=== PATIENT | female | born 1980 | race African-American/Black ===

== ENCOUNTER 2023-05-05 00:44 | Emergency (ER) | payer MEDICAID ==
[~2023-05-05] VITALS: Ht 170.2 cm; Wt 95.0 kg
[2023-05-05 00:45] VITALS: O2SAT 100
[2023-05-05 01:09] LABS: BASOPHILS % 1.1 % (0.0-2.0); DIFFERENTIAL COMMENT 0; EOSINOPHILS % 3.4 % (0.0-5.0); HEMATOCRIT. 35.6 % (36.0-48.0); HEMOGLOBIN. 11.6 g/dL (12.0-16.0); MEAN CORPUSCULAR HEMOGLOBIN 25.3 pg (28.0-32.0); MEAN CORPUSCULAR HGB CONC 32.7 g/dL (31.0-37.0); MEAN CORPUSCULAR VOLUME 77.3 fL (81.0-99.0); MEAN PLATELET VOLUME 8.6 fl (7.4-10.4); MONOCYTES % 9.4 % (2.0-8.0); NEUTROPHILS % 43.1 % (40.0-76.0); PLATELET 272 x1000/uL (130-400); RED BLOOD CELL COUNT 4.61 mill/uL (4.2-5.4); RED CELL DISTRIBUTION WIDTH 19.1 % (11.6-14.6); WHITE BLOOD COUNT 6.1 x1000/uL (4.5-11.0)
[2023-05-05 01:20] LABS: ALANINE AMINOTRANSFERASE 9 IU/L (10-49); ALBUMIN 4.2 g/dL (3.2-4.8); ASPARTATE AMINOTRANSFERASE 11 IU/L (<34); BILIRUBIN TOTAL 0.2 mg/dL (0.1-1.0); CALCIUM 9.3 mg/dL (8.7-10.4); CARBON DIOXIDE 25 mEq/L (21-32); CHLORIDE 106 mEq/L (98-107); CREATININE 0.8 mg/dL (0.6-1.0); GLUCOSE 129 mg/dL (70-105); HCG SCREEN NEGATIVE; POTASSIUM 3.3 mEq/L (3.5-5.1); PROTEIN TOTAL 7.3 g/dL (6.0-8.3); SODIUM 139 mEq/L (136-145); TROPONIN I HIGH SENSITIVITY 5 ng/L (3.0-34); UREA NITROGEN BLOOD 14 mg/dL (9-23)
[2023-05-05 02:59] LABS: *AMPHETAMINES SCREEN URINE NEGATIVE (NEGATIVE); *BARBITURATES SCREEN URINE NEGATIVE (NEGATIVE); *BENZODIAZEPINES SCREEN URINE NEGATIVE (NEGATIVE); *COCAINE SCREEN URINE NEGATIVE (NEGATIVE); CANNABINOID URINE SCREEN NEGATIVE (NEGATIVE); ECSTASY MDMA SCREEN URINE NEGATIVE (NEGATIVE); METHADONE URINE SCREEN Neg (NEGATIVE); OPIATES URINE SCREEN NEGATIVE (NEGATIVE); PHENCYCLIDINE URINE SCREEN NEGATIVE (NEGATIVE)
[2023-05-05] MEDS: AMLODIPINE 5MG TABLET PO NR (04:12)
[2023-05-05] MEDS: ACETAMINOPHEN 325MG TABLET PO NR (04:13)
[2023-05-05] MEDS: METOCLOPRAMIDE HCL 10MG/2ML VIAL IV NR (04:14)
[2023-05-05] MEDS ORDERED: AMLO10TA80 MT (05:36)
[2023-05-05] MEDS ORDERED: METO-293 MT (05:36)
[2023-05-05 07:50] VITALS: BP 139/88; PULSE 87; RESP 16; TEMP 98
== END 2023-05-05 08:30 | disposition home or self-care (01) ==
LOC: ER 00:44
DX: I10 Essential (primary) hypertension (principal); G43.909 Migraine, unspecified, not intractable, without status migrainosus; Z00.00 Encounter for general adult medical examination without abnormal findings; Z91.148 Patient's other noncompliance with medication regimen for other reason
CPT/HCPCS: 99285; 96374; 70450; 71045; 80053; 80305; 84703; 83880; 85025; 84484; 36415; 93005; J2765

== ENCOUNTER 2023-05-18 00:25 | Inpatient (IN) | payer MEDICAID ==
[~2023-05-18] VITALS: Ht 167.6 cm; Wt 97.5 kg
[~2023-05-18 00:25] MED LIST: AMLO10TA80 MT; METO-293 MT
[2023-05-18 01:09] LABS: CLARITY URINE CLEAR (CLEAR); COLOR URINE YELLOW (YELLOW); GLUCOSE URINE NEGATIVE (NEGATIVE); KETONES URINE NEGATIVE (NEGATIVE); LEUKOCYTE ESTERASE URINE TRACE (NEGATIVE); NITRITE URINE NEGATIVE (NEGATIVE); OCCULT BLOOD URINE 1+ (NEGATIVE); PH URINE 7.5 (4.5-8.0); PROTEIN URINE NEGATIVE (NEGATIVE); SPECIFIC GRAVITY URINE 1.012 (1.005-1.030)
[2023-05-18 01:12] LABS: BASOPHILS % 0.7 % (0.0-2.0); DIFFERENTIAL COMMENT 0; EOSINOPHILS % 2.5 % (0.0-5.0); HEMATOCRIT. 35.7 % (36.0-48.0); HEMOGLOBIN. 11.5 g/dL (12.0-16.0); MEAN CORPUSCULAR HEMOGLOBIN 24.8 pg (28.0-32.0); MEAN CORPUSCULAR HGB CONC 32.2 g/dL (31.0-37.0); MEAN CORPUSCULAR VOLUME 77.1 fL (81.0-99.0); MEAN PLATELET VOLUME 8.6 fl (7.4-10.4); MONOCYTES % 6.6 % (2.0-8.0); NEUTROPHILS % 50.2 % (40.0-76.0); PLATELET 310 x1000/uL (130-400); RED BLOOD CELL COUNT 4.63 mill/uL (4.2-5.4); RED CELL DISTRIBUTION WIDTH 17.4 % (11.6-14.6); WHITE BLOOD COUNT 7.2 x1000/uL (4.5-11.0)
[2023-05-18 01:24] LABS: ALANINE AMINOTRANSFERASE 15 IU/L (10-49); ALBUMIN 4.5 g/dL (3.2-4.8); ASPARTATE AMINOTRANSFERASE 15 IU/L (<34); BILIRUBIN TOTAL 0.3 mg/dL (0.1-1.0); CARBON DIOXIDE 25 mEq/L (21-32); CHLORIDE 107 mEq/L (98-107); CREATININE 0.7 mg/dL (0.6-1.0); GLUCOSE 117 mg/dL (70-105); POTASSIUM 3.2 mEq/L (3.5-5.1); PROTEIN TOTAL 8.3 g/dL (6.0-8.3); SODIUM 138 mEq/L (136-145); TROPONIN I HIGH SENSITIVITY 9 ng/L (3.0-34); UREA NITROGEN BLOOD 11 mg/dL (9-23)
[2023-05-18 01:34] LABS: BACTERIA URINE TRACE; RBC URINE 0-2 /hpf (0-2); SQUAMOUS EPITHELIAL CELL URINE FEW /lpf (RARE/1+)
[2023-05-18 06:09] LABS: HCG SCREEN NEGATIVE
[2023-05-18] MEDS ORDERED: IOHEXOL-350 100 ML BOTTLE ONE (07:16)
[2023-05-18 07:50] VITALS: BP 132/92; PULSE 94; RESP 18; TEMP 98.1
[2023-05-18 08:00] VITALS: BP 134/92; PULSE 91; RESP 18; TEMP 94.6
[2023-05-18] MEDS ORDERED: HYDR10TA34 PO (11:16)
[2023-05-18 12:00] VITALS: BP 126/84; PULSE 84; RESP 18; TEMP 96
[2023-05-18] MEDS ORDERED: NALOXONE HCL 0.4MG/ML VIAL IV PRN (12:00)
[2023-05-18] MEDS: HYDROCODONE/ACETAMINOPHEN 5/325MG TABLET PO PRN (12:44)
[2023-05-18] MEDS ORDERED: ONDANSETRON HCL 4MG/2ML INJ IV PRN (14:15)
[2023-05-18] MEDS ORDERED: ACETAMINOPHEN 325MG TABLET PO PRN (14:15)
[2023-05-18] MEDS ORDERED: CLONIDINE 0.1MG TABLET PO PRN (14:15)
[2023-05-18] MEDS ORDERED: MAGNESIUM/ALUMINUM HYDROXIDE/SIMETHICONE 30ML UDC PO PRN (14:15)
[2023-05-18 16:00] VITALS: BP 128/70; PULSE 97; RESP 18; TEMP 97.3
[2023-05-18] MEDS: CEFTRIAXONE 1GM/50ML 50 ML IV SCH (16:01)
[2023-05-18] MEDS: ENOXAPARIN 30MG/0.3ML SYR SUBCUT SCH (16:02)
[2023-05-18 17:50] LABS: *AMPHETAMINES SCREEN URINE NEGATIVE (NEGATIVE); *BARBITURATES SCREEN URINE NEGATIVE (NEGATIVE); *BENZODIAZEPINES SCREEN URINE NEGATIVE (NEGATIVE); *COCAINE SCREEN URINE NEGATIVE (NEGATIVE); CANNABINOID URINE SCREEN NEGATIVE (NEGATIVE); ECSTASY MDMA SCREEN URINE NEGATIVE (NEGATIVE); METHADONE URINE SCREEN Neg (NEGATIVE); OPIATES URINE SCREEN PRESUMPTIVE POSITIVE (NEGATIVE); PHENCYCLIDINE URINE SCREEN NEGATIVE (NEGATIVE)
[2023-05-18 20:00] VITALS: BP 115/64; PULSE 95; RESP 20; TEMP 97.9
[2023-05-19] VITALS: BP 112/63; PULSE 94; RESP 20; TEMP 97.7
[2023-05-19 04:00] VITALS: BP 129/66; PULSE 96; RESP 20; TEMP 97.8
[2023-05-19 06:30] LABS: BASOPHILS % 0.8 % (0.0-2.0); DIFFERENTIAL COMMENT 0; EOSINOPHILS % 4.5 % (0.0-5.0); HEMATOCRIT. 36.7 % (36.0-48.0); HEMOGLOBIN. 12.1 g/dL (12.0-16.0); LYMPHOCYTES % 49.8 % (20.0-50.0); MEAN CORPUSCULAR HEMOGLOBIN 25.4 pg (28.0-32.0); MEAN CORPUSCULAR VOLUME 76.9 fL (81.0-99.0); NEUTROPHILS % 35.9 % (40.0-76.0); PLATELET 263 x1000/uL (130-400); RED BLOOD CELL COUNT 4.78 mill/uL (4.2-5.4); WHITE BLOOD COUNT 5.2 x1000/uL (4.5-11.0)
[2023-05-19 07:06] LABS: ALANINE AMINOTRANSFERASE 15 IU/L (10-49); ASPARTATE AMINOTRANSFERASE 20 IU/L (<34); BILIRUBIN DIRECT 0.1 mg/dL (<=3.0); BILIRUBIN TOTAL 0.5 mg/dL (0.1-1.0); CALCIUM 8.6 mg/dL (8.7-10.4); CARBON DIOXIDE 25 mEq/L (21-32); CHLORIDE 104 mEq/L (98-107); CHOLESTEROL 194 mg/dL (<200); CREATININE 0.6 mg/dL (0.6-1.0); GLUCOSE 104 mg/dL (70-105); HDL CHOLESTEROL 72 mg/dL (>65); LDL CHOLESTEROL 121 mg/dL (5-100); PHOSPHORUS 3.2 mg/dL (2.5-4.9); POTASSIUM 3.6 mEq/L (3.5-5.1); SODIUM 138 mEq/L (136-145); THYROID STIMULATING HORMONE 7.86 uIU/mL (0.55-4.78); TRIGLYCERIDE 76 mg/dL (0-150); TROPONIN I HIGH SENSITIVITY 8 ng/L (3.0-34); UREA NITROGEN BLOOD 12 mg/dL (9-23)
[2023-05-19 08:00] VITALS: BP 118/84; PULSE 108; RESP 18; TEMP 97.9
[2023-05-19] MEDS: PANTOPRAZOLE SODIUM 40 MG/VIAL IV SCH (10:08)
[2023-05-19] MEDS ORDERED: IOHEXOL-350 100 ML BOTTLE ONE (10:23)
[2023-05-19 12:00] VITALS: BP 120/77; PULSE 90; RESP 18; TEMP 97.8
[2023-05-19 12:43] LABS: T4 FREE 0.98 ng/dL (0.89-1.76)
[2023-05-19] MEDS: LEVOTHYROXINE SODIUM 25MCG TABLET PO SCH (12:56)
[2023-05-19 16:00] VITALS: BP 122/80; PULSE 93; RESP 18; TEMP 98.6
[2023-05-19 20:43] VITALS: BP 120/82; PULSE 95; RESP 16; TEMP 97.8
[2023-05-19] MEDS: ATORVASTATIN CALCIUM 40MG TABLET PO SCH (20:56)
[2023-05-19] MEDS: METOPROLOL TARTRATE 25MG TABLET PO SCH (20:56)
[2023-05-20] VITALS: BP 119/70; PULSE 84; RESP 20; TEMP 97.3
[2023-05-20 07:32] LABS: BASOPHILS % 0.6 % (0.0-2.0); DIFFERENTIAL COMMENT 0; HEMATOCRIT. 35.6 % (36.0-48.0); HEMOGLOBIN. 11.9 g/dL (12.0-16.0); MEAN CORPUSCULAR HEMOGLOBIN 25.6 pg (28.0-32.0); MEAN CORPUSCULAR HGB CONC 33.5 g/dL (31.0-37.0); MEAN CORPUSCULAR VOLUME 76.3 fL (81.0-99.0); MEAN PLATELET VOLUME 9.1 fl (7.4-10.4); MONOCYTES % 8.6 % (2.0-8.0); NEUTROPHILS % 48.8 % (40.0-76.0); PLATELET 272 x1000/uL (130-400); RED BLOOD CELL COUNT 4.67 mill/uL (4.2-5.4); RED CELL DISTRIBUTION WIDTH 16.8 % (11.6-14.6); WHITE BLOOD COUNT 4.9 x1000/uL (4.5-11.0)
[2023-05-20 07:37] LABS: CALCIUM 9.2 mg/dL (8.7-10.4); CARBON DIOXIDE 25 mEq/L (21-32); CHLORIDE 105 mEq/L (98-107); CREATININE 0.8 mg/dL (0.6-1.0); GLUCOSE 114 mg/dL (70-105); POTASSIUM 3.9 mEq/L (3.5-5.1); SODIUM 138 mEq/L (136-145); UREA NITROGEN BLOOD 18 mg/dL (9-23)
[2023-05-20 08:00] VITALS: BP 100/66; PULSE 84; RESP 18; TEMP 97.5
[2023-05-20 12:01] VITALS: BP 116/64; PULSE 98; RESP 18; TEMP 98
[2023-05-20] MEDS ORDERED: LIP40 MT (12:37)
[2023-05-20] MEDS ORDERED: LEVO25TA2 MT (12:37)
[2023-05-20] MEDS ORDERED: LEVO-65 MT (12:37)
[2023-05-20 14:06] VITALS: BP 117/61; PULSE 98; TEMP 97.9; O2SAT 96
[2023-05-20 16:00] VITALS: BP 106/76; PULSE 92; RESP 20; TEMP 98.6
== END 2023-05-20 16:50 | disposition home or self-care (01) | DRG 199 ==
LOC: ER 00:25 → 7WST 02:01
PROVIDERS: ADMIT Internal Medicine; ATTEND Internal Medicine
DX: I10 Essential (primary) hypertension (principal); E03.9 Hypothyroidism, unspecified; R00.0 Tachycardia, unspecified; E66.9 Obesity, unspecified; Z68.34 Body mass index [BMI] 34.0-34.9, adult; E78.5 Hyperlipidemia, unspecified
CPT/HCPCS: 36415; 71045; 71275; 80048; 80053; 80061; 80076; 80305; 81003; 83735; 84100; 84439; 84443; 84481; 84484; 84703; 85025; 85379; 93005; 93306; 93970; 99285; C9113; J0696; J1650; Q9967

== ENCOUNTER 2023-07-08 10:34 | Emergency (ER) | payer MEDICAID ==
[~2023-07-08] VITALS: Ht 167.6 cm; Wt 97.5 kg
[~2023-07-08 10:34] MED LIST changes: +HYDR10TA34 PO; +LEVO-65 MT; +LEVO25TA2 MT; +LIP40 MT
[2023-07-08 10:39] VITALS: O2SAT 98
[2023-07-08] MEDS: KETOROLAC 30MG/ML VIAL IV STA (10:47)
[2023-07-08] MEDS: DEXAMETHASONE 4MG/ML 1ML VIAL IV ONE (11:00)
[2023-07-08] MEDS: AMOXICILLIN/POTASSIUM CLAVULANATE 875/125MG TAB PO ONE (11:00)
[2023-07-08] MEDS: ACETAMINOPHEN 325MG TABLET PO ONE (11:00)
[2023-07-08] MEDS: SODIUM CHLORIDE 0.9% 500 ML IV ONE (11:00)
[2023-07-08 13:00] VITALS: BP 127/74; PULSE 89; RESP 17; TEMP 98.4
[2023-07-08] MEDS ORDERED: IBUP-2029 MT (13:20)
[2023-07-08] MEDS ORDERED: AMOX1TAB16 MT (13:20)
== END 2023-07-08 15:57 | disposition home or self-care (01) ==
LOC: ER 10:34
DX: J02.9 Acute pharyngitis, unspecified (principal); I10 Essential (primary) hypertension; Z79.899 Other long term (current) drug therapy
CPT/HCPCS: 87430; 96361; 96374; 96375; 99284; J1100; J1885; J7030; Z7610

== ENCOUNTER 2023-09-20 04:39 | Inpatient (IN) | payer MEDICAID ==
[~2023-09-20] VITALS: Ht 170.2 cm; Wt 94.8 kg
[~2023-09-20 04:39] MED LIST changes: +AMOX1TAB16 MT; +IBUP-2029 MT
[2023-09-20 06:00] LABS: BASOPHILS % 0.7 % (0.0-2.0); DIFFERENTIAL COMMENT 0; EOSINOPHILS % 3.1 % (0.0-5.0); HEMATOCRIT. 34.4 % (36.0-48.0); HEMOGLOBIN. 10.9 g/dL (12.0-16.0); LYMPHOCYTES % 41.9 % (20.0-50.0); MEAN CORPUSCULAR HEMOGLOBIN 22.7 pg (28.0-32.0); MEAN CORPUSCULAR HGB CONC 31.7 g/dL (31.0-37.0); MEAN CORPUSCULAR VOLUME 71.4 fL (81.0-99.0); MEAN PLATELET VOLUME 8.3 fl (7.4-10.4); MONOCYTES % 8.5 % (2.0-8.0); NEUTROPHILS % 45.8 % (40.0-76.0); PLATELET 286 x1000/uL (130-400); RED BLOOD CELL COUNT 4.82 mill/uL (4.2-5.4); RED CELL DISTRIBUTION WIDTH 16.9 % (11.6-14.6); WHITE BLOOD COUNT 4.4 x1000/uL (4.5-11.0)
[2023-09-20 06:13] LABS: CHLORIDE 108 mEq/L (98-107); POTASSIUM 3.9 mEq/L (3.5-5.1); SODIUM 140 mEq/L (136-145)
[2023-09-20 06:14] LABS: CALCIUM 9.1 mg/dL (8.7-10.4); CARBON DIOXIDE 26 mEq/L (21-32)
[2023-09-20 06:19] LABS: CREATININE 0.7 mg/dL (0.6-1.0); GLUCOSE 116 mg/dL (70-105); UREA NITROGEN BLOOD 8 mg/dL (9-23)
[2023-09-20 06:20] LABS: TROPONIN I HIGH SENSITIVITY 7 ng/L (3.0-34)
[2023-09-20] MEDS: HYDRALAZINE 20MG/ML VIAL IV ONE ×2 (06:30→09:00)
[2023-09-20] MEDS ORDERED: LEVOFLOXACIN 750MG PREMIX 150 ML IV ONE (06:45)
[2023-09-20] MEDS ORDERED: LEVETIRACETAM 500MG PREMIX 100 ML IV NR (07:00)
[2023-09-20] MEDS: ACETAMINOPHEN 325MG TABLET PO ONE (07:00)
[2023-09-20] MEDS: LEVOFLOXACIN 500MG PREMIX 100 ML IV NR (07:00)
[2023-09-20] MEDS: LEVOFLOXACIN 250MG PREMIX 100 ML IV NR (08:44)
[2023-09-20] MEDS ORDERED: ACETAMINOPHEN 325MG TABLET PO PRN (08:45)
[2023-09-20] MEDS ORDERED: IPRATROPIUM/ALBUTEROL 0.5-3(2.5)MG/3ML NEB NEB PRN (08:45)
[2023-09-20] MEDS ORDERED: MAGNESIUM/ALUMINUM HYDROXIDE/SIMETHICONE 30ML UDC PO PRN (08:45)
[2023-09-20] MEDS ORDERED: ONDANSETRON HCL 4MG/2ML INJ IV PRN (08:45)
[2023-09-20] MEDS ORDERED: GUAIFENESIN 200MG/10ML SUGAR FREE UDC PO PRN (08:45)
[2023-09-20] MEDS ORDERED: NITROGLYCERIN 0.4MG TABLET SL SL PRN (08:45)
[2023-09-20] MEDS: ENOXAPARIN 30MG/0.3ML SYR SUBCUT SCH (09:00)
[2023-09-20] MEDS: LOSARTAN 50 MG TABLET PO SCH (09:00)
[2023-09-20] MEDS: AMLODIPINE 5MG TABLET PO SCH (09:00)
[2023-09-20] MEDS: ASPIRIN 81MG EC TABLET PO SCH (09:00)
[2023-09-20] MEDS: FAMOTIDINE 20MG TABLET PO SCH (09:00)
[2023-09-20 09:08] LABS: IRON 23 ug/dL (50-170)
[2023-09-20 09:09] LABS: LDL CHOLESTEROL 113 mg/dL (5-100); TRIGLYCERIDE 76 mg/dL (0-150)
[2023-09-20 09:10] LABS: HDL CHOLESTEROL 69 mg/dL (>65)
[2023-09-20 09:11] LABS: CHOLESTEROL 190 mg/dL (<200); TOTAL IRON BINDING CAPACITY 447 ug/dl (250-425)
[2023-09-20 09:14] LABS: T4 FREE 1.04 ng/dL (0.89-1.76)
[2023-09-20 09:15] LABS: THYROID STIMULATING HORMONE 8.74 uIU/mL (0.55-4.78)
[2023-09-20 09:20] LABS: FOLIC ACID (FOLATE) SERUM 9.79 ng/mL (>5.38)
[2023-09-20 09:21] LABS: VITAMIN B12 SERUM 695 pg/mL (211-911)
[2023-09-20 09:44] LABS: ETHANOL BLOOD < 10 mg/dL (<10)
[2023-09-20] MEDS: KETOROLAC 15MG/ML VIAL IV PRN (10:37)
[2023-09-20 17:15] LABS: CREATINE KINASE MB FRACTION < 0.5 ng/mL (0.5-3.6); TROPONIN I HIGH SENSITIVITY 8 ng/L (3.0-34)
[2023-09-20 17:16] LABS: CREATINE KINASE 74 IU/L (34-145)
[2023-09-20] MEDS: ACETAMINOPHEN 325MG TABLET PO PRN (20:17)
[2023-09-20] MEDS: DOCUSATE SODIUM 100MG CAPSULE PO PRN (20:17)
[2023-09-20] MEDS: ZOLPIDEM TARTRATE 5MG TABLET PO PRN (23:21)
[2023-09-20 23:38] LABS: CREATINE KINASE MB FRACTION < 0.5 ng/mL (0.5-3.6); TROPONIN I HIGH SENSITIVITY 8 ng/L (3.0-34)
[2023-09-20 23:39] LABS: CREATINE KINASE 81 IU/L (34-145)
[2023-09-21 01:30] VITALS: BP 133/88; PULSE 90; RESP 20; TEMP 97.6
[2023-09-21 04:00] VITALS: BP 137/74; PULSE 78; RESP 0; TEMP 97.6
[2023-09-21 07:29] LABS: CHLORIDE 106 mEq/L (98-107); DIFFERENTIAL COMMENT 0; EOSINOPHILS % 2.5 % (0.0-5.0); HEMATOCRIT. 35.4 % (36.0-48.0); HEMOGLOBIN. 11.7 g/dL (12.0-16.0); LYMPHOCYTES % 46.2 % (20.0-50.0); MEAN CORPUSCULAR HGB CONC 33.1 g/dL (31.0-37.0); MEAN CORPUSCULAR VOLUME 72.4 fL (81.0-99.0); MEAN PLATELET VOLUME 9.3 fl (7.4-10.4); MONOCYTES % 8.5 % (2.0-8.0); NEUTROPHILS % 41.8 % (40.0-76.0); PLATELET 265 x1000/uL (130-400); POTASSIUM 4.3 mEq/L (3.5-5.1); RED BLOOD CELL COUNT 4.89 mill/uL (4.2-5.4); RED CELL DISTRIBUTION WIDTH 16.8 % (11.6-14.6); SODIUM 136 mEq/L (136-145); WHITE BLOOD COUNT 4.2 x1000/uL (4.5-11.0)
[2023-09-21 07:31] LABS: CALCIUM 9.3 mg/dL (8.7-10.4); CARBON DIOXIDE 22 mEq/L (21-32)
[2023-09-21 07:36] LABS: CREATININE 0.7 mg/dL (0.6-1.0); GLUCOSE 112 mg/dL (70-105); UREA NITROGEN BLOOD 12 mg/dL (9-23)
[2023-09-21 07:37] LABS: ALANINE AMINOTRANSFERASE 20 IU/L (10-49); ALBUMIN 4.2 g/dL (3.2-4.8)
[2023-09-21 07:38] LABS: ASPARTATE AMINOTRANSFERASE 22 IU/L (<34); BILIRUBIN TOTAL 0.5 mg/dL (0.1-1.0); PHOSPHORUS 3.2 mg/dL (2.5-4.9); PROTEIN TOTAL 7.6 g/dL (6.0-8.3)
[2023-09-21 08:00] VITALS: BP 142/86; PULSE 89; RESP 20; TEMP 97.5
[2023-09-21] MEDS: FERROUS SULFATE 300MG/5ML UDC PO SCH (08:55)
[2023-09-21 12:00] VITALS: BP 138/86; PULSE 94; RESP 20; TEMP 97.6
[2023-09-21 16:00] VITALS: BP 139/87; PULSE 89; RESP 18; TEMP 97.7
[2023-09-21 20:00] VITALS: BP 161/106; PULSE 95; RESP 19; TEMP 97.7
[2023-09-21] MEDS: CLONIDINE 0.1MG TABLET PO PRN (20:27)
[2023-09-22] VITALS: BP 122/87; PULSE 92; RESP 19; TEMP 97.7
[2023-09-22 04:00] VITALS: BP 104/57; PULSE 82; RESP 19; TEMP 97.7
[2023-09-22 07:30] VITALS: BP 103/74; RESP 19; TEMP 98
[2023-09-22] MEDS ORDERED: ASPI-1406 PO (10:15)
[2023-09-22] MEDS ORDERED: LOSA50TA41 PO (10:15)
[2023-09-22] MEDS ORDERED: LIP40 MT (10:15)
[2023-09-22] MEDS ORDERED: AMLO10TA80 MT (10:15)
[2023-09-22 11:04] VITALS: BP 103/74; PULSE 94; TEMP 98; O2SAT 98
[2023-09-22 12:00] VITALS: BP 110/87; PULSE 91; RESP 19; TEMP 97.5
== END 2023-09-22 13:33 | disposition home or self-care (01) | DRG 199 ==
LOC: ER 04:39 → 5WST 07:51 → EDBEDREQ 07:52 → EDBEDREQTM 07:52 → 7WST 09-21 01:39
PROVIDERS: ADMIT Internal Medicine; ATTEND Internal Medicine
DX: I16.1 Hypertensive emergency (principal); D50.9 Iron deficiency anemia, unspecified; E66.9 Obesity, unspecified; I10 Essential (primary) hypertension; Z68.32 Body mass index [BMI] 32.0-32.9, adult
CPT/HCPCS: 36415; 71045; 80048; 80053; 80061; 80320; 82550; 82553; 82607; 82746; 83036; 83540; 83550; 83735; 83880; 84100; 84145; 84439; 84443; 84484; 85025; 85379; 87426; 93005; 93306; 93970; 99285; J0360; J1650; J1885; J1956; G0480

== ENCOUNTER 2023-10-23 22:35 | Emergency (ER) | payer MEDICAID ==
[~2023-10-23] VITALS: Ht 167.6 cm; Wt 95.0 kg
[~2023-10-23 22:35] MED LIST changes: -AMOX1TAB16 MT; +ASPI-1406 PO; -HYDR10TA34 PO; -IBUP-2029 MT; -LEVO-65 MT; +LOSA50TA41 PO; -METO-293 MT
[2023-10-23 23:19] LABS: BASOPHILS % 0.7 % (0.0-2.0); DIFFERENTIAL COMMENT 0; EOSINOPHILS % 1.7 % (0.0-5.0); HEMATOCRIT. 34.4 % (36.0-48.0); HEMOGLOBIN. 11.1 g/dL (12.0-16.0); MEAN CORPUSCULAR HEMOGLOBIN 22.8 pg (28.0-32.0); MEAN CORPUSCULAR HGB CONC 32.2 g/dL (31.0-37.0); MEAN CORPUSCULAR VOLUME 70.8 fL (81.0-99.0); MEAN PLATELET VOLUME 8.3 fl (7.4-10.4); MONOCYTES % 8.7 % (2.0-8.0); NEUTROPHILS % 53.9 % (40.0-76.0); PLATELET 287 x1000/uL (130-400); RED BLOOD CELL COUNT 4.86 mill/uL (4.2-5.4); RED CELL DISTRIBUTION WIDTH 17.5 % (11.6-14.6); WHITE BLOOD COUNT 6.4 x1000/uL (4.5-11.0)
[2023-10-23 23:26] LABS: CHLORIDE 106 mEq/L (98-107); POTASSIUM 3.5 mEq/L (3.5-5.1); SODIUM 140 mEq/L (136-145)
[2023-10-23 23:27] LABS: CALCIUM 9.6 mg/dL (8.7-10.4); CARBON DIOXIDE 27 mEq/L (21-32)
[2023-10-23 23:32] LABS: CREATININE 0.8 mg/dL (0.6-1.0); GLUCOSE 91 mg/dL (70-105); UREA NITROGEN BLOOD 12 mg/dL (9-23)
[2023-10-23 23:34] LABS: TROPONIN I HIGH SENSITIVITY 6 ng/L (3.0-34)
[2023-10-23 23:48] VITALS: O2SAT 100
[2023-10-24] MEDS: HYDRALAZINE HCL 25MG TABLET PO NR (01:54)
[2023-10-24] MEDS: LORAZEPAM 1MG TABLET PO NR (01:54)
[2023-10-24 05:52] VITALS: BP 142/99; PULSE 92; RESP 20; TEMP 98.3
== END 2023-10-24 05:54 | disposition home or self-care (01) ==
LOC: ER 22:35
DX: I10 Essential (primary) hypertension (principal); R51.9 Headache, unspecified; Z79.899 Other long term (current) drug therapy
CPT/HCPCS: 36415; 71045; 80048; 84484; 85025; 93005; 99285

== ENCOUNTER 2023-10-25 03:20 | Emergency (ER) | payer MEDICAID ==
[~2023-10-25] VITALS: Ht 165.1 cm; Wt 101.8 kg
[2023-10-25 03:36] VITALS: O2SAT 98
[2023-10-25 03:56] LABS: BASOPHILS % 0.5 % (0.0-2.0); DIFFERENTIAL COMMENT 0; EOSINOPHILS % 1.3 % (0.0-5.0); HEMATOCRIT. 35.2 % (36.0-48.0); HEMOGLOBIN. 11.1 g/dL (12.0-16.0); LYMPHOCYTES % 30.1 % (20.0-50.0); MEAN CORPUSCULAR HEMOGLOBIN 22.6 pg (28.0-32.0); MEAN CORPUSCULAR HGB CONC 31.6 g/dL (31.0-37.0); MEAN CORPUSCULAR VOLUME 71.4 fL (81.0-99.0); MEAN PLATELET VOLUME 8.8 fl (7.4-10.4); MONOCYTES % 7.2 % (2.0-8.0); NEUTROPHILS % 60.9 % (40.0-76.0); PLATELET 312 x1000/uL (130-400); RED BLOOD CELL COUNT 4.93 mill/uL (4.2-5.4); WHITE BLOOD COUNT 7.5 x1000/uL (4.5-11.0)
[2023-10-25 04:04] LABS: CLARITY URINE CLOUDY (CLEAR); COLOR URINE YELLOW (YELLOW); GLUCOSE URINE NEGATIVE (NEGATIVE); KETONES URINE NEGATIVE (NEGATIVE); LEUKOCYTE ESTERASE URINE NEGATIVE (NEGATIVE); NITRITE URINE NEGATIVE (NEGATIVE); OCCULT BLOOD URINE NEGATIVE (NEGATIVE); PH URINE 6.5 (4.5-8.0); PROTEIN URINE NEGATIVE (NEGATIVE); SPECIFIC GRAVITY URINE 1.017 (1.005-1.030)
[2023-10-25 04:04] LABS: CHLORIDE 105 mEq/L (98-107); POTASSIUM 3.3 mEq/L (3.5-5.1); SODIUM 138 mEq/L (136-145)
[2023-10-25 04:05] LABS: CARBON DIOXIDE 26 mEq/L (21-32)
[2023-10-25 04:06] LABS: CALCIUM 9.7 mg/dL (8.7-10.4)
[2023-10-25 04:10] LABS: CREATININE 0.8 mg/dL (0.6-1.0); GLUCOSE 117 mg/dL (70-105)
[2023-10-25 04:11] LABS: UREA NITROGEN BLOOD 12 mg/dL (9-23)
[2023-10-25 04:17] LABS: BACTERIA URINE NONE SEEN; RBC URINE NONE SEEN /hpf (0-2); SQUAMOUS EPITHELIAL CELL URINE 1+ /lpf (RARE/1+); WBC URINE 0-2 /hpf (0-2)
[2023-10-25 04:24] LABS: TROPONIN I HIGH SENSITIVITY 6 ng/L (3.0-34)
[2023-10-25 04:59] VITALS: BP 140/91; PULSE 99; RESP 20; TEMP 98.3
[2023-10-25] MEDS: POTASSIUM CHLORIDE 20MEQ/PACKET PO NR (05:00)
== END 2023-10-25 05:00 | disposition home or self-care (01) ==
LOC: ER 03:20
DX: I10 Essential (primary) hypertension (principal)
CPT/HCPCS: 36415; 80048; 81003; 84484; 85025; 93005; 99284

== ENCOUNTER 2024-02-09 05:14 | Inpatient (IN) | payer MEDICAID ==
[~2024-02-09] VITALS: Ht 167.6 cm; Wt 103.1 kg
[2024-02-09 06:30] LABS: BASOPHILS % 1.3 % (0.0-2.0); EOSINOPHILS % 2.9 % (0.0-5.0); HEMATOCRIT. 31.5 % (36.0-48.0); HEMOGLOBIN. 9.8 g/dL (12.0-16.0); LYMPHOCYTES % 34.3 % (20.0-50.0); MEAN CORPUSCULAR HEMOGLOBIN 20.1 pg (28.0-32.0); MEAN CORPUSCULAR HGB CONC 31.2 g/dL (31.0-37.0); MEAN CORPUSCULAR VOLUME 64.5 fL (81.0-99.0); MONOCYTES % 10.3 % (2.0-8.0); NEUTROPHILS % 51.2 % (40.0-76.0); PLATELET 277 x1000/uL (130-400); RED BLOOD CELL COUNT 4.89 mill/uL (4.2-5.4); RED CELL DISTRIBUTION WIDTH 18.6 % (11.6-14.6); WHITE BLOOD COUNT 5.1 x1000/uL (4.5-11.0)
[2024-02-09 06:44] LABS: CHLORIDE 106 mEq/L (98-107); SODIUM 141 mEq/L (136-145)
[2024-02-09 06:45] LABS: CALCIUM 9.4 mg/dL (8.7-10.4); CARBON DIOXIDE 26 mEq/L (21-32)
[2024-02-09 06:48] LABS: DIFFERENTIAL COMMENT 1
[2024-02-09 06:49] LABS: ADD RBC MORPHOLOGY YES
[2024-02-09 06:50] LABS: CREATININE 0.6 mg/dL (0.6-1.0); GLUCOSE 139 mg/dL (70-105); TROPONIN I HIGH SENSITIVITY 8 ng/L (3.0-34); UREA NITROGEN BLOOD 10 mg/dL (9-23)
[2024-02-09 07:34] LABS: HCG SCREEN NEGATIVE
[2024-02-09] MEDS: LACTATED RINGERS 1,000 ML IV SCH (08:04)
[2024-02-09 08:18] LABS: ANISOCYTOSIS 2+; HYPOCHROMASIA 1+; MICROCYTOSIS 4+; PLATELET ESTIMATE NORMAL
[2024-02-09] MEDS ORDERED: IPRATROPIUM/ALBUTEROL 0.5-3(2.5)MG/3ML NEB HHN SCH (08:30)
[2024-02-09] MEDS ORDERED: GUAIFENESIN 200MG/10ML SUGAR FREE UDC PO PRN (08:30)
[2024-02-09] MEDS ORDERED: CLONIDINE 0.1MG TABLET PO PRN (08:30)
[2024-02-09] MEDS ORDERED: ACETAMINOPHEN 325MG TABLET PO PRN ×2 (08:30)
[2024-02-09] MEDS ORDERED: DOCUSATE SODIUM 100MG CAPSULE PO PRN (08:30)
[2024-02-09] MEDS ORDERED: IPRATROPIUM/ALBUTEROL 0.5-3(2.5)MG/3ML NEB HHN PRN (08:30)
[2024-02-09] MEDS: POTASSIUM CHLORIDE 20MEQ TABLET SR PO NR (09:00)
[2024-02-09 09:06] LABS: TROPONIN I HIGH SENSITIVITY 8 ng/L (3.0-34)
[2024-02-09] MEDS: AMLODIPINE 5MG TABLET PO SCH (09:55)
[2024-02-09] MEDS: ASPIRIN 81MG EC TABLET PO SCH (09:55)
[2024-02-09] MEDS: CLONIDINE 0.1MG TABLET PO SCH (12:00)
[2024-02-09] MEDS: ONDANSETRON HCL 4MG/2ML INJ IV PRN (12:19)
[2024-02-09 12:21] LABS: IRON 24 ug/dL (50-170)
[2024-02-09 12:24] LABS: TOTAL IRON BINDING CAPACITY 434 ug/dl (250-425)
[2024-02-09 16:00] VITALS: BP 139/98; PULSE 85; RESP 18; TEMP 36.3918; O2SAT 98
[2024-02-09 16:35] VITALS: BP 130/89; PULSE 87; RESP 18; TEMP 36.61404; O2SAT 96
[2024-02-09] MEDS: NITROGLYCERIN 0.4MG TABLET SL SL PRN (16:57)
[2024-02-09 17:00] VITALS: BP 139/89; PULSE 90; RESP 18; TEMP 36.5292
[2024-02-09 20:00] VITALS: BP 121/83; PULSE 91; RESP 18; TEMP 36.72516; O2SAT 97
[2024-02-09] MEDS ORDERED: ENOXAPARIN 30MG/0.3ML SYR SUBCUT SCH (21:00)
[2024-02-09] MEDS: ATORVASTATIN CALCIUM 40MG TABLET PO SCH (21:00)
[2024-02-09 23:05] LABS: FERRITIN 7 ng/mL (10-291); FOLIC ACID (FOLATE) SERUM 7.31 ng/mL (>5.38)
[2024-02-09 23:06] LABS: VITAMIN B12 SERUM 667 pg/mL (211-911)
[2024-02-10] VITALS: BP 120/71; PULSE 87; RESP 20; TEMP 36.72516; O2SAT 97
[2024-02-10 04:00] VITALS: BP 116/76; PULSE 77; RESP 20; TEMP 36.50292; O2SAT 97
[2024-02-10 06:41] LABS: BASOPHILS % 0.4 % (0.0-2.0); EOSINOPHILS % 3.1 % (0.0-5.0); HEMATOCRIT. 33.3 % (36.0-48.0); HEMOGLOBIN. 10.1 g/dL (12.0-16.0); LYMPHOCYTES % 49.1 % (20.0-50.0); MEAN CORPUSCULAR HEMOGLOBIN 20.3 pg (28.0-32.0); MEAN CORPUSCULAR HGB CONC 30.5 g/dL (31.0-37.0); MEAN CORPUSCULAR VOLUME 66.6 fL (81.0-99.0); MEAN PLATELET VOLUME 9.1 fl (7.4-10.4); MONOCYTES % 7.1 % (2.0-8.0); NEUTROPHILS % 40.3 % (40.0-76.0); PLATELET 245 x1000/uL (130-400); RED CELL DISTRIBUTION WIDTH 18.5 % (11.6-14.6); WHITE BLOOD COUNT 4.7 x1000/uL (4.5-11.0)
[2024-02-10 06:43] LABS: CHLORIDE 106 mEq/L (98-107); POTASSIUM 3.8 mEq/L (3.5-5.1); SODIUM 139 mEq/L (136-145)
[2024-02-10 06:44] LABS: ADD RBC MORPHOLOGY NO; CALCIUM 9.5 mg/dL (8.7-10.4); CARBON DIOXIDE 25 mEq/L (21-32); DIFFERENTIAL COMMENT 1
[2024-02-10 06:49] LABS: CREATININE 0.7 mg/dL (0.6-1.0); GLUCOSE 110 mg/dL (70-105); TRIGLYCERIDE 65 mg/dL (0-150); UREA NITROGEN BLOOD 10 mg/dL (9-23)
[2024-02-10 06:50] LABS: LDL CHOLESTEROL 76 mg/dL (5-100)
[2024-02-10 06:51] LABS: CHOLESTEROL 167 mg/dL (<200); HDL CHOLESTEROL 64 mg/dL (>65)
[2024-02-10 06:52] LABS: T4 FREE 1.27 ng/dL (0.89-1.76); THYROID STIMULATING HORMONE 12.16 uIU/mL (0.55-4.78)
[2024-02-10] MEDS: PANTOPRAZOLE 40MG DR TABLET PO SCH (06:58)
[2024-02-10 08:00] VITALS: BP 104/63; PULSE 73; RESP 16; TEMP 36.55848; O2SAT 100
[2024-02-10] MEDS: AMLODIPINE 2.5MG TABLET PO SCH (08:40)
[2024-02-10 12:00] VITALS: BP 115/75; PULSE 72; RESP 16; TEMP 37.00296; O2SAT 100
[2024-02-10 14:34] VITALS: BP 115/68; PULSE 90; TEMP 98.6; O2SAT 99
[2024-02-10 16:00] VITALS: BP 121/76; PULSE 73; RESP 16; TEMP 36.9474; TEMP 36.94740; O2SAT 100
[2024-02-10] MEDS ORDERED: ATORVASTATIN CALCIUM 10MG TABLET PO SCH (21:00)
== END 2024-02-10 16:52 | disposition home or self-care (01) | DRG 203 ==
LOC: ER 05:14 → 7EST 06:37
PROVIDERS: ADMIT Hospitalist; ATTEND Hospitalist
DX: R07.89 Other chest pain (principal); D50.0 Iron deficiency anemia secondary to blood loss (chronic); E03.9 Hypothyroidism, unspecified; E87.6 Hypokalemia; R00.0 Tachycardia, unspecified; E66.9 Obesity, unspecified; I10 Essential (primary) hypertension; Z82.49 Family history of ischemic heart disease and other diseases of the circulatory system; Z83.49 Family history of other endocrine, nutritional and metabolic diseases; Z68.36 Body mass index [BMI] 36.0-36.9, adult; E83.42 Hypomagnesemia; F41.9 Anxiety disorder, unspecified
CPT/HCPCS: 36415; 71045; 80048; 80061; 82607; 82728; 82746; 83540; 83550; 83735; 84439; 84443; 84484; 84703; 85025; 85044; 85379; 93005; 93306; 99291; J2405

== ENCOUNTER 2024-05-08 13:41 | Inpatient (IN) | payer MEDICAID ==
[~2024-05-08] VITALS: Ht 165.1 cm; Wt 86.2 kg
[2024-05-08] MEDS: NITROGLYCERIN 50MG PREMIX 250 ML IV ONE (14:37)
[2024-05-08] MEDS: FUROSEMIDE 40MG/4ML VIAL IV ONE (14:37)
[2024-05-08 15:42] LABS: BASOPHILS % 1.1 % (0.0-2.0); EOSINOPHILS % 2.4 % (0.0-5.0); HEMATOCRIT. 36.1 % (36.0-48.0); HEMOGLOBIN. 11.2 g/dL (12.0-16.0); LYMPHOCYTES % 33.1 % (20.0-50.0); MEAN CORPUSCULAR HEMOGLOBIN 20.6 pg (28.0-32.0); MEAN CORPUSCULAR HGB CONC 31.1 g/dL (31.0-37.0); MEAN CORPUSCULAR VOLUME 66.3 fL (81.0-99.0); MEAN PLATELET VOLUME 9.2 fl (7.4-10.4); NEUTROPHILS % 57.4 % (40.0-76.0); PLATELET 315 x1000/uL (130-400); RED BLOOD CELL COUNT 5.44 mill/uL (4.2-5.4); RED CELL DISTRIBUTION WIDTH 19.8 % (11.6-14.6); WHITE BLOOD COUNT 8.3 x1000/uL (4.5-11.0)
[2024-05-08 15:44] LABS: DIFFERENTIAL COMMENT 1
[2024-05-08 15:45] LABS: ADD RBC MORPHOLOGY YES
[2024-05-08 15:51] LABS: PARTIAL THROMBOPLASTIN TIME 25.3 sec (23.4-31.0); PROTHROMBIN TIME 10.4 sec (9.6-11.0)
[2024-05-08 15:52] LABS: CHLORIDE 104 mEq/L (98-107); POTASSIUM 3.9 mEq/L (3.5-5.1); SODIUM 141 mEq/L (136-145)
[2024-05-08 15:53] LABS: CALCIUM 9.5 mg/dL (8.7-10.4); CARBON DIOXIDE 27 mEq/L (21-32)
[2024-05-08 15:58] LABS: CREATININE 0.9 mg/dL (0.6-1.0); GLUCOSE 122 mg/dL (70-105); UREA NITROGEN BLOOD 12 mg/dL (9-23)
[2024-05-08 16:00] LABS: TROPONIN I HIGH SENSITIVITY 5 ng/L (3.0-34)
[2024-05-08] MEDS ORDERED: NA PHOS,M-B/NA PHOS,DI-BA ENEMA 118ML PR PRN (16:45)
[2024-05-08] MEDS ORDERED: ACETAMINOPHEN 325MG TABLET PO PRN (16:45)
[2024-05-08] MEDS ORDERED: CLONIDINE 0.1MG TABLET PO PRN (16:45)
[2024-05-08] MEDS ORDERED: ONDANSETRON HCL 4MG/2ML INJ IV PRN (16:45)
[2024-05-08] MEDS ORDERED: NITROGLYCERIN 50MG PREMIX 250 ML IV PRN (16:52)
[2024-05-08] MEDS ORDERED: IPRATROPIUM/ALBUTEROL 0.5-3(2.5)MG/3ML NEB HHN PRN (17:00)
[2024-05-08 17:07] LABS: HYPOCHROMASIA 2+; MICROCYTOSIS 3+; PLATELET ESTIMATE NORMAL
[2024-05-08 17:08] LABS: ANISOCYTOSIS 1+
[2024-05-08] MEDS ORDERED: AMLODIPINE 10MG TABLET PO SCH (17:15)
[2024-05-08] MEDS ORDERED: HYDRALAZINE 20MG/ML VIAL IV PRN (17:15)
[2024-05-08] MEDS: AMLODIPINE 5MG TABLET PO SCH (18:38)
[2024-05-08] MEDS: LOSARTAN 50 MG TABLET PO NR (18:38)
[2024-05-08] MEDS ORDERED: PANTOPRAZOLE 40MG DR TABLET PO SCH (21:00)
[2024-05-08] MEDS ORDERED: ATORVASTATIN CALCIUM 40MG TABLET PO SCH (21:00)
[2024-05-08] MEDS ORDERED: ENOXAPARIN 30MG/0.3ML SYR SUBCUT SCH (21:00)
[2024-05-09] VITALS: BP 116/82; PULSE 96; RESP 19; TEMP 36.8; O2SAT 98
[2024-05-09 01:03] VITALS: BP 132/77; PULSE 90; RESP 15; TEMP 36.5
[2024-05-09 04:00] VITALS: BP 107/60; PULSE 87; RESP 18; TEMP 38.6; O2SAT 100
[2024-05-09] MEDS: NITROGLYCERIN 0.4MG TABLET SL SL PRN (04:07)
[2024-05-09] MEDS: PANTOPRAZOLE 40MG DR TABLET PO SCH (06:29)
[2024-05-09] MEDS: ACETAMINOPHEN 325MG TABLET PO PRN (06:29)
[2024-05-09 06:57] LABS: CARBON DIOXIDE 22 mEq/L (21-32); CHLORIDE 105 mEq/L (98-107); POTASSIUM 3.5 mEq/L (3.5-5.1); SODIUM 139 mEq/L (136-145)
[2024-05-09 06:58] LABS: BASOPHILS % 0.7 % (0.0-2.0); EOSINOPHILS % 5.4 % (0.0-5.0); HEMATOCRIT. 33.6 % (36.0-48.0); HEMOGLOBIN. 10.5 g/dL (12.0-16.0); LYMPHOCYTES % 32.4 % (20.0-50.0); MEAN CORPUSCULAR HEMOGLOBIN 20.3 pg (28.0-32.0); MEAN CORPUSCULAR HGB CONC 31.2 g/dL (31.0-37.0); MEAN CORPUSCULAR VOLUME 65.3 fL (81.0-99.0); NEUTROPHILS % 53.5 % (40.0-76.0); PLATELET 276 x1000/uL (130-400); RED BLOOD CELL COUNT 5.15 mill/uL (4.2-5.4); RED CELL DISTRIBUTION WIDTH 19.7 % (11.6-14.6); WHITE BLOOD COUNT 6.4 x1000/uL (4.5-11.0)
[2024-05-09 06:59] LABS: CALCIUM 9.3 mg/dL (8.7-10.4)
[2024-05-09 07:03] LABS: CREATININE 0.7 mg/dL (0.6-1.0); GLUCOSE 120 mg/dL (70-105); UREA NITROGEN BLOOD 11 mg/dL (9-23)
[2024-05-09 07:10] LABS: ADD RBC MORPHOLOGY NO; DIFFERENTIAL COMMENT 1
[2024-05-09 08:00] VITALS: BP 118/76; PULSE 87; RESP 17; TEMP 36.4; O2SAT 99
[2024-05-09] MEDS: LEVOTHYROXINE SODIUM 25MCG TABLET PO SCH (09:33)
[2024-05-09] MEDS: ASPIRIN 81MG EC TABLET PO SCH (09:34)
[2024-05-09] MEDS: LOSARTAN 50 MG TABLET PO SCH (09:34)
[2024-05-09] MEDS: ENOXAPARIN 30MG/0.3ML SYR SUBCUT SCH (09:44)
[2024-05-09 16:00] VITALS: BP 101/58; PULSE 79; RESP 18; TEMP 36.6; O2SAT 97
[2024-05-09 17:20] LABS: T4 FREE 1.29 ng/dL (0.89-1.76); THYROID STIMULATING HORMONE 13.47 uIU/mL (0.55-4.78)
[2024-05-09 20:00] VITALS: BP 104/63; PULSE 94; RESP 18; TEMP 36.6; O2SAT 96
[2024-05-09] MEDS: ATORVASTATIN CALCIUM 40MG TABLET PO SCH (21:54)
[2024-05-10 00:08] LABS: *AMPHETAMINES SCREEN URINE NEGATIVE (NEGATIVE); *BENZODIAZEPINES SCREEN URINE NEGATIVE (NEGATIVE)
[2024-05-10 00:09] LABS: *BARBITURATES SCREEN URINE NEGATIVE (NEGATIVE); *COCAINE SCREEN URINE NEGATIVE (NEGATIVE); CANNABINOID URINE SCREEN NEGATIVE (NEGATIVE); ECSTASY MDMA SCREEN URINE NEGATIVE (NEGATIVE); METHADONE URINE SCREEN NEGATIVE (NEGATIVE); OPIATES URINE SCREEN NEGATIVE (NEGATIVE); PHENCYCLIDINE URINE SCREEN NEGATIVE (NEGATIVE)
[2024-05-10 04:00] VITALS: BP 109/63; PULSE 86; RESP 18; TEMP 36.9; O2SAT 96
[2024-05-10 08:00] VITALS: BP 108/58; PULSE 73; RESP 17; TEMP 36.6; O2SAT 99
[2024-05-10] MEDS: LEVOTHYROXINE SODIUM 75MCG TABLET PO SCH (12:00)
[2024-05-10] MEDS ORDERED: LEVO75TA7 PO (18:53)
[2024-05-11 00:49] VITALS: BP 129/74; PULSE 78; RESP 15; TEMP 36.7; O2SAT 99
[2024-05-11 07:54] VITALS: BP 129/72; PULSE 78; TEMP 97.8; O2SAT 99
[2024-05-11 08:00] VITALS: BP 126/78; PULSE 84; RESP 17; TEMP 36.2; O2SAT 96
== END 2024-05-11 09:15 | disposition home or self-care (01) | DRG 199 ==
LOC: ER 13:41 → EDBEDREQ 14:11 → EDBEDREQTM 15:44 → EDBEDREQSVC 18:03 → 5WST 21:35 → 7EST 05-11 00:07
PROVIDERS: ADMIT Internal Medicine; ATTEND Internal Medicine
DX: I16.0 Hypertensive urgency (principal); D50.9 Iron deficiency anemia, unspecified; I16.1 Hypertensive emergency; E03.9 Hypothyroidism, unspecified; E78.5 Hyperlipidemia, unspecified; Z79.82 Long term (current) use of aspirin; Z79.899 Other long term (current) drug therapy; Z82.49 Family history of ischemic heart disease and other diseases of the circulatory system
CPT/HCPCS: 36415; 71045; 80048; 80305; 83735; 83880; 84439; 84443; 84484; 85025; 93005; 93970; 99291; A4606; J1650; J1940; J3490

== ENCOUNTER 2024-05-28 00:16 | Emergency (ER) | payer MEDICAID ==
[~2024-05-28] VITALS: Ht 167.6 cm; Wt 86.0 kg
[~2024-05-28 00:16] MED LIST changes: -LEVO25TA2 MT; +LEVO75TA7 PO
[2024-05-28 00:43] VITALS: TEMP 36.9; O2SAT 100
[2024-05-28 00:44] VITALS: O2SAT 99
[2024-05-28 01:43] LABS: BASOPHILS % 1.2 % (0.0-2.0); EOSINOPHILS % 1.6 % (0.0-5.0); HEMATOCRIT. 34.7 % (36.0-48.0); HEMOGLOBIN. 10.6 g/dL (12.0-16.0); LYMPHOCYTES % 28.3 % (20.0-50.0); MEAN CORPUSCULAR HEMOGLOBIN 20.2 pg (28.0-32.0); MEAN CORPUSCULAR HGB CONC 30.5 g/dL (31.0-37.0); MEAN CORPUSCULAR VOLUME 66.3 fL (81.0-99.0); MEAN PLATELET VOLUME 8.8 fl (7.4-10.4); MONOCYTES % 5.1 % (2.0-8.0); NEUTROPHILS % 63.8 % (40.0-76.0); PLATELET 369 x1000/uL (130-400); RED BLOOD CELL COUNT 5.24 mill/uL (4.2-5.4); RED CELL DISTRIBUTION WIDTH 19.2 % (11.6-14.6); WHITE BLOOD COUNT 6.9 x1000/uL (4.5-11.0)
[2024-05-28 01:47] LABS: CLARITY URINE CLEAR (CLEAR); COLOR URINE YELLOW (YELLOW); GLUCOSE URINE NEGATIVE (NEGATIVE); KETONES URINE NEGATIVE (NEGATIVE); LEUKOCYTE ESTERASE URINE NEGATIVE (NEGATIVE); NITRITE URINE NEGATIVE (NEGATIVE); OCCULT BLOOD URINE NEGATIVE (NEGATIVE); PH URINE 5.5 (4.5-8.0); PROTEIN URINE 2+ (NEGATIVE); SPECIFIC GRAVITY URINE 1.022 (1.005-1.030); UROBILINOGEN URINE 0.2 E.U./dL (0.2-1.0)
[2024-05-28] MEDS: KETOROLAC 30MG/ML VIAL IV STA (01:51)
[2024-05-28 01:52] LABS: DIFFERENTIAL COMMENT 1
[2024-05-28] MEDS: DIPHENHYDRAMINE 50MG/ML VIAL IV ONE (02:00)
[2024-05-28] MEDS: METOCLOPRAMIDE HCL 10MG/2ML VIAL IV ONE (02:00)
[2024-05-28 02:27] LABS: CHLORIDE 105 mEq/L (98-107); POTASSIUM 3.5 mEq/L (3.5-5.1); SODIUM 138 mEq/L (136-145)
[2024-05-28 02:28] LABS: CALCIUM 9.3 mg/dL (8.7-10.4); CARBON DIOXIDE 23 mEq/L (21-32)
[2024-05-28 02:33] LABS: CREATININE 0.7 mg/dL (0.6-1.0); GLUCOSE 157 mg/dL (70-105); UREA NITROGEN BLOOD 11 mg/dL (9-23)
[2024-05-28 02:41] LABS: HCG SCREEN NEGATIVE
[2024-05-28] MEDS ORDERED: FERR324T4 MT (04:17)
[2024-05-28 04:52] LABS: SQUAMOUS EPITHELIAL CELL URINE FEW /lpf (RARE/1+); WBC URINE 0-2 /hpf (0-2)
[2024-05-28 04:53] LABS: RBC URINE NONE SEEN /hpf (0-2)
[2024-05-28 04:54] LABS: BACTERIA URINE TRACE
[2024-05-28 04:55] LABS: CALCIUM OXALATE CRYSTALS URINE 1+ /lpf
[2024-05-28] MEDS: SODIUM CHLORIDE 0.9% 1,000 ML IV ONE (06:08)
[2024-05-28 06:22] VITALS: BP 172/92; PULSE 130; RESP 18
[2024-05-28] MEDS: KETOROLAC 30MG/ML VIAL IV NR (06:22)
[2024-05-28] MEDS: METOCLOPRAMIDE HCL 10MG/2ML VIAL IV NR (06:22)
[2024-05-28] MEDS: DIPHENHYDRAMINE 50MG/ML VIAL IV NR (06:22)
[2024-05-28] MEDS: ACETAMINOPHEN 1000MG/100ML 100 ML IV ONE (06:45)
== END 2024-05-28 10:35 | disposition home or self-care (01) ==
LOC: ER 00:16
DX: R51.9 Headache, unspecified (principal); D50.9 Iron deficiency anemia, unspecified; E03.9 Hypothyroidism, unspecified; E78.00 Pure hypercholesterolemia, unspecified; F10.90 Alcohol use, unspecified, uncomplicated; I11.9 Hypertensive heart disease without heart failure; Z79.82 Long term (current) use of aspirin; Z79.899 Other long term (current) drug therapy; Z88.0 Allergy status to penicillin; Y90.9 Presence of alcohol in blood, level not specified
CPT/HCPCS: 99285; 96365; 96375; 70450; 96361; 80048; 81003; 84703; 85025; 36415; 93005; J1885; J1200; J2765; J7030; J0131

== ENCOUNTER 2024-10-14 12:50 | Emergency (ER) | payer MEDICAID ==
[~2024-10-14] VITALS: Ht 167.6 cm; Wt 100.0 kg
[~2024-10-14 12:50] MED LIST changes: +FERR324T4 MT
[2024-10-14 12:53] VITALS: O2SAT 99
[2024-10-14 14:44] LABS: BASOPHILS % 0.3 % (0.0-2.0); EOSINOPHILS % 1.9 % (0.0-5.0); HEMATOCRIT. 31.9 % (36.0-48.0); HEMOGLOBIN. 9.6 g/dL (12.0-16.0); LYMPHOCYTES % 42.4 % (20.0-50.0); MEAN PLATELET VOLUME 9.1 fl (7.4-10.4); MONOCYTES % 10.4 % (2.0-8.0); NEUTROPHILS % 45.0 % (40.0-76.0); PLATELET 277 x1000/uL (130-400); RED BLOOD CELL COUNT 5.05 mill/uL (4.2-5.4); RED CELL DISTRIBUTION WIDTH 18.5 % (11.6-14.6)
[2024-10-14 14:51] LABS: ADD RBC MORPHOLOGY YES
[2024-10-14 14:54] LABS: CREATININE 0.7 mg/dL (0.6-1.0); TROPONIN I HIGH SENSITIVITY 9 ng/L (3.0-34)
[2024-10-14 14:55] LABS: UREA NITROGEN BLOOD 9 mg/dL (9-23)
[2024-10-14 15:13] VITALS: BP 125/84; PULSE 109; RESP 18; TEMP 36.9; O2SAT 99
[2024-10-14 15:42] LABS: PLATELET ESTIMATE NORMAL
== END 2024-10-14 16:12 | disposition home or self-care (01) ==
LOC: ER 12:50
DX: R00.2 Palpitations (principal); E78.00 Pure hypercholesterolemia, unspecified; I10 Essential (primary) hypertension; E03.9 Hypothyroidism, unspecified; Z79.899 Other long term (current) drug therapy; Z79.82 Long term (current) use of aspirin; Z98.890 Other specified postprocedural states; Z88.0 Allergy status to penicillin
CPT/HCPCS: 36415; 80048; 84484; 85025; 93005; 99284